=== PATIENT | male | born 1980 ===

== ENCOUNTER 2025-05-01 02:45 | Emergency (ER) | payer SELFPAY ==
[2025-05-01] MEDS: Orphenadrine 60 MG/2 ML Inj IM ONE (03:20)
[2025-05-01] MEDS: Ketorolac 30 MG/ML SDV IM ONE (03:25)
== END 2025-05-01 03:35 ==
LOC: VM.ED 02:45
DX: S80.212A Abrasion, left knee, initial encounter (principal); S80.211A Abrasion, right knee, initial encounter; S30.810A Abrasion of lower back and pelvis, initial encounter; S40.211A Abrasion of right shoulder, initial encounter; R45.1 Restlessness and agitation; M79.10 Myalgia, unspecified site; X58.XXXA Exposure to other specified factors, initial encounter
CPT/HCPCS: 96372; 99284; J1885; J2360